=== PATIENT | female | born 1960 | race American Indian/Alaskan Native ===

== ENCOUNTER 2018-12-11 19:03 | Emergency (ER) | payer OTHER ==
--- NOTE | 2018-12-11 19:29 | Event Note ---
ED Screening Note Date of service: 12/11/18 Time: 19:25 ED Screening Note: This is a 58 y.o. F. that presents to the ER with nausea and vomiting x 2 days. Patient is able to hold solids. Symptoms only occur after drinking liquids. PMH of DM & HTN Patient states she stopped taking DM meds for 2 days. This initial assessment/diagnostic orders/clinical plan/treatment(s) is/are subject to change based on patients health status, clinical progression and re- assessment by fellow clinical providers in the ED. Further treatment and workup at subsequent clinical providers discretion. Patient/guardian urged not to elope from the ED as their condition may be serious if not clinically assessed and managed. Initial orders include: labs
[2018-12-11 19:47] LABS: Hematocrit 39.7 % (30.3-42.9); Hemoglobin 13.2 gm/dl (10.1-14.3); Mean Corpuscular HGB Conc 33 % (30-34); Mean Corpuscular Volume 88 fl (79-97); Platelet Count 181 K/mm3 (140-440); Red Blood Count 4.53 M/mm3 (3.65-5.03); Red Cell Distribution Width 13.3 % (13.2-15.2)
[2018-12-11 20:06] LABS: Calcium 9.2 mg/dL (8.4-10.2)
[2018-12-11] MEDS ORDERED: NACL 0.9% 1000 ML 1,000 ML IV ONE ×2 (22:15→22:34)
[2018-12-11] MEDS ORDERED: HumuLIN R IV ONE (22:15)
--- NOTE | 2018-12-11 22:38 | Emergency Department Report ---
ED General Adult HPI - General Chief complaint: Nausea/Vomiting/Diarrhea Stated complaint: VOMITTING/NOT EATING Time Seen by Provider: 12/11/18 19:25 Source: patient Mode of arrival: Ambulatory Limitations: No Limitations - History of Present Illness Initial comments: CC: "stress" HPI: Mrs. Pittman is a very pleasant 58-year-old female with history of hy pertension and diabetes mellitus who presents with nausea vomiting. She's been unable to tolerate food. She stopped taking her insulin for the past 2 days. She's been under a lot of stress. She feels better after she was given more time to sell house before foreclosure. She has lived in the home for 17 years. She denies suicidal or homicidal ideation. She has been under a lot of financial stress. She denies any pain. She only takes NovoLog and Levemir. She does have access to medication at home. She is followed by [facility]. -: Gradual, days(s) (2) Consistency: constant Improves with: none Worsens with: none Associated Symptoms: malaise, nausea/vomiting - Related Data Previous Rx's Medication Instructions Recorded Last Taken Type Promethazine [Phenergan] 25 mg PO Q6HR PRN #10 tab 12/12/18 Unknown Rx Allergies Allergy/AdvReac Type Severity Reaction Status Date / Time No Known Allergies Allergy Unverified 12/11/18 19:31 ED Review of Systems ROS: Stated complaint: VOMITTING/NOT EATING Other details as noted in HPI Comment: All other systems reviewed and negative Constitutional: malaise Gastrointestinal: nausea, vomiting. denies: abdominal pain Skin: denies: rash, lesions ED Past Medical Hx - Past Medical History Previous Medical History?: Yes Hx Hypertension: Yes Hx Diabetes: Yes - Surgical History Past Surgical History?: No - Social History Smoking Status: Never Smoker Substance Use Type: None - Medications Home Medications: Home Medications Medication Instructions Recorded Confirmed Last Taken Type Promethazine [Phenergan] 25 mg PO Q6HR PRN #10 tab 12/12/18 Unknown Rx ED Physical Exam - General Limitations: No Limitations General appearance: alert, in no apparent distress - Head Head exam: Present: atraumatic, normocephalic - Eye Eye exam: Present: normal appearance - ENT ENT exam: Present: mucous membranes moist - Neck Neck exam: Present: normal inspection, full ROM - Respiratory Respiratory exam: Present: normal lung sounds bilaterally. Absent: respiratory distress, wheezes, rales, rhonchi - Cardiovascular Cardiovascular Exam: Present: regular rate, normal rhythm, normal heart sounds. Absent: systolic murmur, diastolic murmur, rubs, gallop - GI/Abdominal GI/Abdominal exam: Present: soft, normal bowel sounds. Absent: distended, guarding, rebound - Extremities Exam Extremities exam: Present: normal inspection - Back Exam Back exam: Present: normal inspection - Neurological Exam Neurological exam: Present: alert, oriented X3 - Psychiatric Psychiatric exam: Present: normal affect, normal mood - Skin Skin exam: Present: warm, dry, intact, normal color. Absent: rash ED Course Vital Signs 12/11/18 19:18 Temperature 98.4 F Pulse Rate 95 H Respiratory 18 Rate Blood Pressure 152/82 O2 Sat by Pulse 97 Oximetry ED Medical Decision Making - Lab Data Result diagrams: 12/11/18 19:35 12/11/18 19:35 - Medical Decision Making Mrs. Pittman presents with poor appetite due to some financial stress. Now she has signs of vomiting complicated by hyperglycemia. No evidence of peritonitis or obstruction clinically. Normal bicarbonate. Increased anion gap. Received IV fluid in the ED to eliminate ketosis. Also provided IV insulin. Prescribed promethazine. Discharged home. She appears well. Critical care attestation.: If time is entered above; I have spent that time in minutes in the direct care of this critically ill patient, excluding procedure time. ED Disposition Clinical Impression: Nausea & vomiting, Hyperglycemia due to type 2 diabetes mellitus Disposition: - TO HOME OR SELFCARE Is pt being admited?: No Does the pt Need Aspirin: No Condition: Stable Instructions: Acute Nausea and Vomiting (ED) Prescriptions: Promethazine [Phenergan] 25 mg PO Q6HR PRN #10 tab PRN Reason: Nausea Referrals: [facility] [Outside] - 3-5 Days
[2018-12-12 01:25] VITALS: BP 148/75
== END 2018-12-12 01:34 | disposition home or self-care (01) ==
LOC: ED 19:03
DX: E11.65 Type 2 diabetes mellitus with hyperglycemia (principal); F43.9 Reaction to severe stress, unspecified; I10 Essential (primary) hypertension; Z79.4 Long term (current) use of insulin
CPT/HCPCS: 36415; 80048; 82962; 85027; 96361; 96374; 99283; J7030; J1815